=== PATIENT | male | born 1965 | race Caucasian/White ===

== ENCOUNTER 2022-05-22 02:27 | Emergency (ER) | payer OTHER ==
[~2022-05-22] VITALS: Ht 188 cm; Wt 97.3 kg
[~2022-05-22 02:27] MED LIST: NO HOME MEDS; TRAM200T4 PO
[2022-05-22 02:33] VITALS: BP 137/86
[2022-05-22] MEDS ORDERED: proparacaine 0.5% ophthalmic drops 15ml EACHEYE ONE (03:00)
[2022-05-22] MEDS ORDERED: gentamicin 0.3% ophthalmic drops 5ML RIGHTEYE ONE (03:25)
== END 2022-05-22 03:32 | disposition home or self-care (01) ==
LOC: ER 02:28
DX: T15.91XA Foreign body on external eye, part unspecified, right eye, initial encounter (principal); X58.XXXA Exposure to other specified factors, initial encounter; Y93.89 Activity, other specified; Y92.89 Other specified places as the place of occurrence of the external cause; Y99.8 Other external cause status
CPT/HCPCS: 65222; 99284